=== PATIENT | female | born 1960 | race Caucasian/White ===

== ENCOUNTER 2022-07-31 09:34 | Inpatient (IN) | payer OTHER ==
[~2022-07-31] VITALS: Ht 157.5 cm; Wt 66.0 kg
[2022-07-31 10:06] LABS: GLUCOMETER DEV NAME(LOC) ERT.5; GLUCOSE,POINT OF CARE 129 MG/DL (70-110)
[2022-07-31 10:47] LABS: BASOPHILS % (AUTO) 0.5 % (0.0-2.0); EOSINOPHILS % (AUTO) 0.7 % (1.0-6.0); HEMATOCRIT 38.9 % (36-46); HEMOGLOBIN 12.8 g/dL (12.0-16.0); LYMPHOCYTES # (AUTO) 1.3 K/uL (1.0-4.8); LYMPHOCYTES % (AUTO) 33.7 % (22.0-44.0); MEAN CORPUSCULAR HEMOGLOBIN 29.4 pg (26.0-34.0); MEAN CORPUSCULAR HGB CONC 32.9 G/dL (31.0-37.0); MEAN CORPUSCULAR VOLUME 89 fL (80-100); MONOCYTES # (AUTO) 0.5 K/uL (0.1-1.0); MONOCYTES % (AUTO) 11.5 % (2.0-9.0); NEUTROPHILS # (AUTO) 2.1 K/uL (1.8-7.7); NEUTROPHILS % (AUTO) 53.6 % (40.0-70.0); PLATELET COUNT (AUTO) 176 K/uL (150-450); RED BLOOD CELL COUNT(AUTO) 4.36 MIL/uL (4.00-5.20); RED CELL DISTRIBUTION WIDTH 15.5 % (11.5-14.5)
[2022-07-31 10:49] LABS: COVID AG,FIA SOURCE NASAL SWAB
[2022-07-31 11:01] LABS: ANION GAP 6 mmol/L (8-16); CALCIUM, TOTAL 9.5 mg/dL (8.8-10.5); CARBON DIOXIDE 31 mmol/L (22-29); CHLORIDE 102 mmol/L (98-107); CREATININE 0.59 mg/dL (0.60-1.30); GLUCOSE,RANDOM 144 mg/dL (70-110); POTASSIUM 3.9 mmol/L (3.5-5.1); SODIUM SERUM 139 mmol/L (136-145); UREA NITROGEN, BLOOD 13 mg/dL (7-18)
[2022-07-31 11:02] LABS: GLOMERULAR FILTR. RATE CALC > 60 mL/min (>60)
[2022-07-31 11:08] LABS: ALANINE AMINOTRANSFERASE 13 U/L (12-78); ALBUMIN 3.8 g/dL (3.4-5.0); ALKALINE PHOSPHATASE 71 U/L (46-116); ASPARTATE AMINOTRANSFERASE 14 U/L (15-37); BILIRUBIN,TOTAL 0.4 mg/dL (0.1-1.0); TOTAL PROTEIN, SERUM 6.9 g/dL (6.4-8.2)
[2022-07-31 13:13] VITALS: BP 130/70
[2022-07-31] MEDS ORDERED: HYDROCODONE/ACETAMINOPHEN 5-325 MG TABLET PO PRN (14:00)
[2022-07-31] MEDS ORDERED: BISACODYL 10 MG RECTAL RECTAL SUPPOSITORY PR PRN (14:00)
[2022-07-31] MEDS ORDERED: ACETAMINOPHEN 325 MG TABLET PO PRN (14:00)
[2022-07-31] MEDS ORDERED: MAGNESIUM HYDROXIDE SUSPENSION 30 ML UDCUP PO PRN (14:00)
[2022-07-31] MEDS ORDERED: ALBUTEROL SULFATE 2.5 MG/0.5 ML NEB SOLUTION NEB PRN (14:00)
[2022-07-31] MEDS ORDERED: MORPHINE SULFATE 2 MG/ML SYRINGE IVP PRN (14:00)
[2022-07-31] MEDS ORDERED: ONDANSETRON HCL 4 MG/2 ML VIAL IVP PRN (14:00)
[2022-07-31] MEDS ORDERED: IPRATROPIUM BROMIDE 0.5 MG/2.5 ML NEB SOLUTION NEB PRN (14:00)
[2022-07-31 16:03] VITALS: BP_SYST 134; BP_SYST 169; BP_DIAS 68; BP_DIAS 97
[2022-07-31 17:23] VITALS: BP 142/68
[2022-07-31] MEDS: HEPARIN SODIUM,PORCINE 5,000 UNITS/ML VIAL SQ SCH ×2 (17:29→23:23)
[2022-07-31] MEDS ORDERED: DEXTROSE 50%-WATER 25 GM/50 ML SYRINGE IVP PRN (18:15)
[2022-07-31 19:50] VITALS: BP 125/63
[2022-07-31] MEDS: INSULIN LISPRO 100 UNITS/ML SQ PRN (21:39)
[2022-07-31 22:07] LABS: GLUCOMETER DEV NAME(LOC) 6N.2B; GLUCOSE,POINT OF CARE 245 MG/DL (70-110)
[2022-08-01 05:05] VITALS: BP 112/57
[2022-08-01] MEDS: INSULIN LISPRO 100 UNITS/ML SQ PRN ×4 (05:58→20:24)
[2022-08-01 08:16] LABS: GLUCOMETER DEV NAME(LOC) 6N.2B; GLUCOSE,POINT OF CARE 193 MG/DL (70-110)
[2022-08-01] MEDS: HEPARIN SODIUM,PORCINE 5,000 UNITS/ML VIAL SQ SCH ×3 (09:12→23:22)
[2022-08-01] MEDS: CLOTRIMAZOLE 1% 10 ML SOLUTION TP SCH ×3 (09:13→20:17)
[2022-08-01] MEDS: PANTOPRAZOLE SODIUM 40 MG DR TABLET PO SCH (09:13)
[2022-08-01 14:21] LABS: GLUCOMETER DEV NAME(LOC) 6N.2B; GLUCOSE,POINT OF CARE 149 MG/DL (70-110)
[2022-08-01 16:00] VITALS: BP 114/57
[2022-08-01 19:37] VITALS: BP 136/77
[2022-08-01 20:06] LABS: GLUCOMETER DEV NAME(LOC) 6N.2B; GLUCOSE,POINT OF CARE 174 MG/DL (70-110)
[2022-08-02] MEDS: ZOLPIDEM TARTRATE 5 MG TABLET PO PRN (01:10)
[2022-08-02 03:01] LABS: GLUCOMETER DEV NAME(LOC) 6N.2B; GLUCOSE,POINT OF CARE 222 MG/DL (70-110)
[2022-08-02 05:29] VITALS: BP 109/58
[2022-08-02 07:33] VITALS: BP 114/60
[2022-08-02 07:42] LABS: GLUCOMETER DEV NAME(LOC) 6N.1; GLUCOSE,POINT OF CARE 141 MG/DL (70-110)
[2022-08-02] MEDS: HEPARIN SODIUM,PORCINE 5,000 UNITS/ML VIAL SQ SCH ×3 (08:01→23:42)
[2022-08-02] MEDS: PANTOPRAZOLE SODIUM 40 MG DR TABLET PO SCH ×3 (08:04→09:00)
[2022-08-02] MEDS: CLOTRIMAZOLE 1% 10 ML SOLUTION TP SCH (09:00)
[2022-08-02] MEDS: QUEtiapine FUMARATE 25 MG TABLET PO SCH (09:56)
[2022-08-02] MEDS: INSULIN LISPRO 100 UNITS/ML SQ PRN ×2 (12:09→22:21)
[2022-08-02 15:26] VITALS: BP 110/64
[2022-08-02] MEDS: CLOTRIMAZOLE 1% 15 GM CREAM TP SCH ×2 (15:28→22:19)
[2022-08-02 16:41] LABS: GLUCOMETER DEV NAME(LOC) 6N.2B; GLUCOSE,POINT OF CARE 117 MG/DL (70-110)
[2022-08-02 16:41] LABS: GLUCOMETER DEV NAME(LOC) 6N.2B; GLUCOSE,POINT OF CARE 143 MG/DL (70-110)
[2022-08-02 22:32] VITALS: BP 118/75
[2022-08-03] MEDS: ZOLPIDEM TARTRATE 5 MG TABLET PO PRN ×3 (00:15→20:40)
[2022-08-03 00:51] LABS: GLUCOMETER DEV NAME(LOC) 6N.2B; GLUCOSE,POINT OF CARE 147 MG/DL (70-110)
[2022-08-03 06:35] VITALS: BP 106/52
[2022-08-03] MEDS: INSULIN LISPRO 100 UNITS/ML SQ PRN ×3 (06:35→20:41)
[2022-08-03 07:25] VITALS: BP 114/58
[2022-08-03 08:01] LABS: GLUCOMETER DEV NAME(LOC) 6N.2B; GLUCOSE,POINT OF CARE 177 MG/DL (70-110)
[2022-08-03] MEDS: CLOTRIMAZOLE 1% 15 GM CREAM TP SCH ×3 (08:33→20:40)
[2022-08-03] MEDS: QUEtiapine FUMARATE 25 MG TABLET PO SCH (08:33)
[2022-08-03] MEDS: HEPARIN SODIUM,PORCINE 5,000 UNITS/ML VIAL SQ SCH ×2 (08:33→16:20)
[2022-08-03] MEDS: PANTOPRAZOLE SODIUM 40 MG DR TABLET PO SCH (08:33)
[2022-08-03 14:51] LABS: GLUCOMETER DEV NAME(LOC) 6N.1; GLUCOSE,POINT OF CARE 285 MG/DL (70-110)
[2022-08-03 15:09] VITALS: BP 118/60
[2022-08-03 19:27] VITALS: BP 114/56
[2022-08-04] MEDS: HEPARIN SODIUM,PORCINE 5,000 UNITS/ML VIAL SQ SCH ×4 (00:06→23:49)
[2022-08-04 03:50] VITALS: BP 116/60
[2022-08-04 04:51] LABS: GLUCOMETER DEV NAME(LOC) 6N.2B; GLUCOSE,POINT OF CARE 161 MG/DL (70-110)
[2022-08-04 04:51] LABS: GLUCOMETER DEV NAME(LOC) 6N.2B; GLUCOSE,POINT OF CARE 127 MG/DL (70-110)
[2022-08-04] MEDS: INSULIN LISPRO 100 UNITS/ML SQ PRN ×4 (06:06→20:28)
[2022-08-04 07:54] VITALS: BP 132/71
[2022-08-04] MEDS: QUEtiapine FUMARATE 25 MG TABLET PO SCH (08:06)
[2022-08-04] MEDS: PANTOPRAZOLE SODIUM 40 MG DR TABLET PO SCH (08:06)
[2022-08-04] MEDS: CLOTRIMAZOLE 1% 15 GM CREAM TP SCH ×3 (08:07→20:28)
[2022-08-04 14:21] LABS: GLUCOMETER DEV NAME(LOC) 6N.2B; GLUCOSE,POINT OF CARE 225 MG/DL (70-110)
[2022-08-04 14:21] LABS: GLUCOMETER DEV NAME(LOC) 6N.1; GLUCOSE,POINT OF CARE 169 MG/DL (70-110)
[2022-08-04 15:29] VITALS: BP 133/67
[2022-08-04 19:09] VITALS: BP 128/55
[2022-08-04] MEDS: ZOLPIDEM TARTRATE 5 MG TABLET PO PRN (20:55)
[2022-08-05] MEDS: CLOTRIMAZOLE 1% 15 GM CREAM TP SCH ×4 (00:36→20:55)
[2022-08-05 03:26] LABS: GLUCOMETER DEV NAME(LOC) 6N.2B; GLUCOSE,POINT OF CARE 231 MG/DL (70-110)
[2022-08-05 03:26] LABS: GLUCOMETER DEV NAME(LOC) 6N.2B; GLUCOSE,POINT OF CARE 179 MG/DL (70-110)
[2022-08-05 04:28] VITALS: BP 120/86
[2022-08-05] MEDS: INSULIN LISPRO 100 UNITS/ML SQ PRN ×4 (05:47→20:16)
[2022-08-05 07:31] LABS: GLUCOMETER DEV NAME(LOC) 6N.2B; GLUCOSE,POINT OF CARE 172 MG/DL (70-110)
[2022-08-05] MEDS ORDERED: MULTIVITAMINS WITH MINERALS, THERAPEUTIC TABLET PO SCH (08:30)
[2022-08-05 08:32] VITALS: BP 132/72
[2022-08-05 08:34] LABS: BASOPHILS % (AUTO) 0.5 % (0.0-2.0); EOSINOPHILS % (AUTO) 0.2 % (1.0-6.0); HEMATOCRIT 39.1 % (36-46); HEMOGLOBIN 13.1 g/dL (12.0-16.0); LYMPHOCYTES # (AUTO) 1.4 K/uL (1.0-4.8); LYMPHOCYTES % (AUTO) 36.2 % (22.0-44.0); MEAN CORPUSCULAR HEMOGLOBIN 29.3 pg (26.0-34.0); MEAN CORPUSCULAR HGB CONC 33.5 G/dL (31.0-37.0); MEAN CORPUSCULAR VOLUME 88 fL (80-100); MONOCYTES # (AUTO) 0.5 K/uL (0.1-1.0); MONOCYTES % (AUTO) 12.2 % (2.0-9.0); NEUTROPHILS % (AUTO) 50.9 % (40.0-70.0); PLATELET COUNT (AUTO) 162 K/uL (150-450); RED BLOOD CELL COUNT(AUTO) 4.46 MIL/uL (4.00-5.20); RED CELL DISTRIBUTION WIDTH 15.4 % (11.5-14.5)
[2022-08-05 08:52] LABS: ALANINE AMINOTRANSFERASE 9 U/L (12-78); ALBUMIN 3.2 g/dL (3.4-5.0); ALKALINE PHOSPHATASE 76 U/L (46-116); ANION GAP 4 mmol/L (8-16); ASPARTATE AMINOTRANSFERASE 8 U/L (15-37); BILIRUBIN,TOTAL 0.2 mg/dL (0.1-1.0); CALCIUM, TOTAL 9.2 mg/dL (8.8-10.5); CARBON DIOXIDE 32 mmol/L (22-29); CHLORIDE 105 mmol/L (98-107); GLUCOSE,RANDOM 148 mg/dL (70-110); POTASSIUM 3.5 mmol/L (3.5-5.1); SODIUM SERUM 141 mmol/L (136-145); TOTAL PROTEIN, SERUM 6.3 g/dL (6.4-8.2); UREA NITROGEN, BLOOD 7 mg/dL (7-18)
[2022-08-05 08:53] LABS: GLOMERULAR FILTR. RATE CALC > 60 mL/min (>60)
[2022-08-05] MEDS: HEPARIN SODIUM,PORCINE 5,000 UNITS/ML VIAL SQ SCH ×2 (08:58→17:24)
[2022-08-05] MEDS: PANTOPRAZOLE SODIUM 40 MG DR TABLET PO SCH (08:59)
[2022-08-05] MEDS: MetFORMIN HCL 500 MG TABLET PO SCH ×2 (09:00→17:23)
[2022-08-05 12:56] LABS: GLUCOMETER DEV NAME(LOC) 6N.2B; GLUCOSE,POINT OF CARE 225 MG/DL (70-110)
[2022-08-05] MEDS: QUEtiapine FUMARATE 25 MG TABLET PO SCH ×2 (14:47→20:54)
[2022-08-05 15:46] VITALS: BP 145/78
[2022-08-05 19:50] VITALS: BP 116/72
[2022-08-05 21:41] LABS: GLUCOMETER DEV NAME(LOC) 6N.2B; GLUCOSE,POINT OF CARE 196 MG/DL (70-110)
[2022-08-06 01:56] LABS: GLUCOMETER DEV NAME(LOC) 6N.1; GLUCOSE,POINT OF CARE 199 MG/DL (70-110)
== END 2022-08-05 21:19 | DRG 385 ==
LOC: EMS 09:48 → 5S 11:34 → 6N 16:35 → 6S 08-01 10:14
PROVIDERS: ADMIT Hospitalist; ATTEND Hospitalist
DX: B36.9 Superficial mycosis, unspecified (principal); E11.9 Type 2 diabetes mellitus without complications; F99 Mental disorder, not otherwise specified; G89.29 Other chronic pain; Z20.822 Contact with and (suspected) exposure to COVID-19; Z59.00 Homelessness unspecified; Z79.4 Long term (current) use of insulin
CPT/HCPCS: 80053; 82962; 83036; 84484; 85025; 93005; 97116; 97162; 97530; 99285; J1644

== ENCOUNTER → 2022-08-17 | Outpatient (CLI) | payer OTHER | END | disposition home or self-care (01) | LOC: RADPV 13:25 | PROVIDERS: ATTEND Internal Medicine | DX: R56.9 Unspecified convulsions (principal); J34.89 Other specified disorders of nose and nasal sinuses | CPT/HCPCS: 70551 ==